=== PATIENT | female | born 1960 | race Caucasian/White ===

== ENCOUNTER 2019-04-10 05:47 | Inpatient (IN) | payer OTHER ==
[2019-04-10] MEDS: oxyCODONE (CR) 10 MG TAB [oxyCONTIN] PO (06:44)
[2019-04-10] MEDS: DEXAMETHASONE 4 MG/ML 1 ML INJ IV (06:44)
[2019-04-10] MEDS: ACETAMINOPHEN 500 MG TAB PO (06:44)
[2019-04-10] MEDS: LANSOPRAZOLE 30 MG CAP PO (06:44)
[2019-04-10] MEDS: ONDANSETRON 4 MG INJ IV ×3 (06:44→14:26)
[2019-04-10] MEDS: LACTATED RINGER'S 1,000 ML IV (06:45)
[2019-04-10] MEDS ORDERED: POLYMYXIN B 500000 UNIT INJ (06:58)
[2019-04-10] MEDS: TRANEXAMIC ACID 1GM/100ML(PMX) 100 ML INTRA-OP X1 IVPB (07:00)
[2019-04-10] MEDS: CEFAZOLIN 1 GM/50 ML (PMX) 50 ML IVPB (07:00)
[2019-04-10] MEDS: TRANEXAMIC ACID 1GM/100ML(PMX) 100 ML PRE-OP X1 IVPB (07:00)
[2019-04-10] MEDS ORDERED: PROPOFOL 20 ML (07:26)
[2019-04-10] MEDS ORDERED: MIDAZOLAM 1 MG/ML 2 ML INJ (07:27)
[2019-04-10] MEDS ORDERED: morphine SULFATE/PF (10 MG/10 ML) INJ (07:30)
[2019-04-10] MEDS ORDERED: METOCLOPRAMIDE 10 MG INJ (07:31)
[2019-04-10] MEDS ORDERED: ROPIVACAINE 0.2% 20 ML VIAL (07:42)
[2019-04-10] MEDS ORDERED: TRANEXAMIC ACID 1GM/100ML(PMX) 200 ML (07:42)
[2019-04-10] MEDS ORDERED: ONDANSETRON 4 MG INJ (07:42)
[2019-04-10] MEDS ORDERED: CEFAZOLIN 1 GM INJ (07:42)
[2019-04-10] MEDS ORDERED: EPHEDrine 25 MG/5 ML SYG (07:47)
[2019-04-10] MEDS ORDERED: MEPERIDINE 25 MG INJ IV (08:00)
[2019-04-10] MEDS ORDERED: EPHEDrine 25 MG/5 ML SYG IV (08:00)
[2019-04-10] MEDS ORDERED: HYDROmorphONE 1 MG/5 ML IV SYRINGE IV ×3 (08:00)
[2019-04-10] MEDS ORDERED: FENTAnyl 50 MCG/ML VIAL IV ×3 (08:00)
[2019-04-10] MEDS ORDERED: DIPHENHYDRAMINE 50 MG INJ IV (08:00)
[2019-04-10] MEDS: BACITRACIN 50000 UNITS INJ IRR (08:20)
[2019-04-10] MEDS: [UNRECOGNIZED DRUG - OTHER] INJ (08:20)
[2019-04-10] MEDS: POLYMYXIN B 500000 UNIT INJ IRR (08:20)
[2019-04-10] MEDS ORDERED: KETOROLAC 30 MG INJ (09:05)
[2019-04-10] MEDS ORDERED: SENNA/DOCUSATE NA (8.6MG/50MG) TAB PO (11:00)
[2019-04-10] MEDS ORDERED: BISACODYL 10 MG SUPP PR (11:00)
[2019-04-10] MEDS ORDERED: NA PHOSPHATE/BIPHOS 133 ML ENEMA PR (11:00)
[2019-04-10] MEDS ORDERED: NACL 0.9% 3 ML SYG IV (11:00)
[2019-04-10] MEDS ORDERED: MAGNESIUM HYDROXIDE 30ML CUP PO (11:00)
[2019-04-10] MEDS ORDERED: NALOXONE (0.4 MG/ML) INJ IV (11:00)
[2019-04-10] MEDS: CEFAZOLIN 2 GM/50 ML (PMX) 50 ML IVPB ×2 (11:05→19:45)
[2019-04-10] MEDS: DOCUSATE SODIUM 100 MG CAP PO (11:10)
[2019-04-10] MEDS: GABAPENTIN 100 MG CAP PO ×2 (13:00→23:21)
[2019-04-10] MEDS ORDERED: ONDANSETRON 4 MG INJ IV (18:30)
[2019-04-11] MEDS: CEFAZOLIN 2 GM/50 ML (PMX) 50 ML IVPB (03:35)
[2019-04-11 06:18] LABS: ADD MAN DIFF? NO
[2019-04-11 06:28] LABS: WHITE BLOOD COUNT 12.6 10^3/ul (4.8-10.8)
[2019-04-11 06:28] LABS: BASOPHILS % 0.1 % (0.0-2.0); HEMATOCRIT 34.2 % (37.0-47.0); HEMOGLOBIN 10.8 g/dl (12.0-16.0); LYMPHOCYTES # 0.9 10^3/ul (0.8-2.9); LYMPHOCYTES % 6.8 % (15.0-51.0); MEAN CORPUSCULAR HEMOGLOBIN 28.3 pg (29.0-33.0); MEAN CORPUSCULAR HGB CONC 31.6 g/dl (32.0-37.0); MEAN CORPUSCULAR VOLUME 89.8 fl (82.0-101.0); MEAN PLATELET VOLUME 11.9 fl (7.4-10.4); MONOCYTES % 7.9 % (0.0-11.0); NEUTROPHIL # 10.7 10^3/ul (1.6-7.5); NEUTROPHILS % 84.6 % (39.0-77.0); PLATELET COUNT 185 10^3/UL (140-415); RED BLOOD COUNT 3.81 10^6/ul (4.20-5.40); RED CELL DISTRIBUTION WIDTH 13.4 % (11.5-14.5)
[2019-04-11 06:53] LABS: ANION GAP 8 (5-13); BLOOD UREA NITROGEN 14 mg/dl (7-20); CALCIUM 8.6 mg/dl (8.4-10.2); CARBON DIOXIDE 26 mmol/L (21-31); CHLORIDE 103 mmol/L (97-110); Estimated GFR > 60 mL/min (>60); GLUCOSE 139 mg/dl (70-220); POTASSIUM 4.3 mmol/L (3.5-5.1); SODIUM 137 mmol/L (135-144)
[2019-04-11] MEDS: DOCUSATE SODIUM 100 MG CAP PO (09:36)
[2019-04-11] MEDS: GABAPENTIN 100 MG CAP PO ×2 (09:36→13:11)
[2019-04-11] MEDS: oxyCODONE 5 MG TAB PO ×2 (09:36→14:58)
[2019-04-11] MEDS: ASPIRIN (EC) 81 MG TAB PO (09:36)
[2019-04-11] MEDS: CELECOXIB 100 MG CAP PO (09:36)
[2019-04-11] MEDS: KETOROLAC 15 MG INJ IV ×2 (13:14→19:09)
[2019-04-11] MEDS ORDERED: GLUCOSE GEL 15 GRAM TUBE BUCCAL (14:30)
[2019-04-11] MEDS ORDERED: GLUCAGON 1 MG INJ IM (14:30)
[2019-04-11] MEDS ORDERED: GLUCOSE GEL 15 GRAM TUBE PO ×2 (14:30)
[2019-04-11] MEDS ORDERED: DEXTROSE 50% 50 ML SYRINGE IV ×2 (14:30)
[2019-04-11 15:25] LABS: HEMOGLOBIN A1C 6.7 % (0-5.9)
[2019-04-11] MEDS: INSULIN ASPART [NOVOLOG] 3 ML PEN SC (17:55)
[2019-04-12] MEDS ORDERED: ACCU-CHEK XX (02:00)
[2019-04-12] MEDS ORDERED: PANTOPRAZOLE (EC) 40 MG TAB PO (06:00)
== END 2019-04-11 19:50 | disposition home or self-care (01) | DRG 470 ==
LOC: REC 05:47 → MS1 16:15
PROVIDERS: Orthopaedic Surgery Adult Reconstructive Orthopaedic Surgery
PROC: 0SRD069 Replacement of Left Knee Joint with Oxidized Zirconium on Polyethylene Synthetic Substitute, Cemented, Open Approach (ICD-10-PCS; principal; 2019-04-10 07:24)
DX: M17.12 Unilateral primary osteoarthritis, left knee (principal); E11.9 Type 2 diabetes mellitus without complications; Z85.3 Personal history of malignant neoplasm of breast
CPT/HCPCS: 73560; 80048; 82962; 83036; 85025; 87081; 88304; 88311; 97116; 97162; 97530